=== PATIENT | male | born 1970 | race Caucasian/White ===

== ENCOUNTER 2017-08-12 16:56 | Emergency (ER) | payer BC, SELFPAY ==
[2017-08-12 16:57] VITALS: BP 150/89; PULSE 77; RESP 15; TEMP 36.8; O2SAT 96; BMI 41.3
--- NOTE | 2017-08-12 17:07 | EKG12_ITS ---
Test Reason : SYNCOPE Blood Pressure : / mmHG Vent. Rate : 072 BPM Atrial Rate : 072 BPM P-R Int : 150 ms QRS Dur : 102 ms QT Int : 382 ms P-R-T Axes : 057 037 045 degrees QTc Int : 418 ms Normal sinus rhythm Normal ECG Confirmed by DIANA MARRERO, VANESSA ([id number]), development editor VICENTE CHAMPION ([id number] on 08/14/2017 2:14:06 PM Referred By: SAIRA Confirmed By:VANESSA ORTIZ MD
--- NOTE | 2017-08-12 17:09 | NURSING ---
NO OLD EKGS
[2017-08-12] MEDS: 0.9% Normal Saline 1,000 ML 1000 ML IV (17:16)
[2017-08-12 17:23] LABS: Hematocrit 43.1 % (40-54); Hemoglobin 14.6 g/dl (13.0-16.5); Mean Corp Hgb Conc 33.9 g/gl (32-36); Mean Corpuscular Hgb 29.4 pg (27.0-32.0); Mean Corpuscular Volume 86.9 fL (80-94); Mean Platelet Vol. 9.9 fl (6.2-12.0); Platelet Count 190 K/mm3 (150-450); RBC Distribution Width CV 12.9 % (11.6-14.6); RBC Distribution Width SD 41.2 fl (35.1-43.9); Red Blood Count 4.96 M/mm3 (4.6-6.2)
[2017-08-12 17:25] LABS: Scan Indicated on CBC? Y/N NO
[2017-08-12 17:32] LABS: Anion Gap 8 (5-15); BUN 17 mg/dL (7-18); BUN/Creat Ratio 18.3 RATIO (10-20); Calcium,Total 9.3 mg/dL (8.5-10.1); Chloride 109 mmol/L (98-107); Creatinine, Serum 0.93 mg/dL (0.70-1.30); EST Glomerular Filtration Rate 92 mL/min (>60); Est Glom Filt Rate - Afr Amer 111 mL/min (>60); Estimated Creatinine Clearance 105.46 ml/min; Glucose 97 mg/dL (74-106); Potassium 3.8 mmol/L (3.5-5.1); Sodium Level 143 mmol/L (136-145)
[2017-08-12 17:42] VITALS: BP 132/78; BP 138/98; BP 149/93; PULSE 72; PULSE 74; PULSE 77
[2017-08-12 18:17] VITALS: BP 149/86; PULSE 74; RESP 19; O2SAT 97
[2017-08-12] MEDS: Acetaminophen 500 MG Tablet 1000 MG PO (18:22)
--- NOTE | 2017-08-12 18:57 | ED.VISSUMM ---
- ER Visit Summary Date of Service: 08/12/17 Chief Complaint: [Syncope] History of Present Illness: The patient is a 47 M [presents to the emergency department with syncopal episode while at work today. 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 Patient remembers feeling very hot and lightheaded. Patient then began to vomit and while vomiting had a short syncopal episode. Coworkers did not notice any type of seizure activity. Patient has not had episode like this before. Patient denied any chest pain or palpitations. On arrival he feels much improved but has a mild headache. Symptoms did not begin with the headache. Patient generally just feels somewhat weak right now. Patient denies recent illness.] Physical Examination: [HEENT-PERRLA, EOMI. Cranial nerves II through XII grossly intact. TMs clear. Mucous membranes moist. No adenopathy. Cardiovascular-regular rate and rhythm without murmur or ectopy Lungs-clear to auscultation, chest wall stable without crepitus or subcu emphysema Abdomen-normoactive bowel sounds, soft, nontender, no rebound or rigidity, no peritoneal signs Neuro rucj-[id number]-esnc and heel laird testing within normal limits, negative Romberg, negative for drift, fundi benign. Extremities-intact ?4, normal range of motion, normal pulses, atraumatic] Test Results: [EKG obtained arrival shows sinus rhythm with a ventricular rate of 72 bpm with no acute ST segment changes. CBC with differential was normal. Chemistries were normal. Troponin was less than 0.02. Orthostatic vital signs were negative.] Emergency Department Course and Treatment: [Patient received a liter of normal saline in the emergency department as well as a gram of Tylenol for the headache. On repeat examination his headaches mostly resolved rates it a 3 or 4 out of 10 currently.] Treatment Plan: [Discharged home in stable condition with recommended follow-up with primary care physician within next 3-5 days.] Disposition: [Discharged. Patient advised to return if chest pain, palpitations, persistent syncope, or condition should worsen in any way.] Impression: [Syncope-vasovagal] This note was generated with Tykliation software. It may contain incorrect words, spelling, and punctuation that were not noted in review of the chart prior to signing ED Disposition - Plan for ED Patient: Chief Complaint: Syncope Referrals: [facility] Doctor,Out of [Primary Care Provider] -
--- NOTE | 2017-08-12 19:00 | ED.DCSUM_ITS ---
- ER Visit Summary Date of Service: 08/12/17 Chief Complaint: [Syncope] History of Present Illness: The patient is a 47 M [presents to the emergency department with syncopal episode while at work today. 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 Patient remembers feeling very hot and lightheaded. Patient then began to vomit and while vomiting had a short syncopal episode. Coworkers did not notice any type of seizure activity. Patient has not had episode like this before. Patient denied any chest pain or palpitations. On arrival he feels much improved but has a mild headache. Symptoms did not begin with the headache. Patient generally just feels somewhat weak right now. Patient denies recent illness.] Physical Examination: [HEENT-PERRLA, EOMI. Cranial nerves II through XII grossly intact. TMs clear. Mucous membranes moist. No adenopathy. Cardiovascular-regular rate and rhythm without murmur or ectopy Lungs-clear to auscultation, chest wall stable without crepitus or subcu emphysema Abdomen-normoactive bowel sounds, soft, nontender, no rebound or rigidity, no peritoneal signs Neuro ojkm-nysnfr-sxvr and heel laird testing within normal limits, negative Romberg, negative for drift, fundi benign. Extremities-intact ?4, normal range of motion, normal pulses, atraumatic] Test Results: [EKG obtained arrival shows sinus rhythm with a ventricular rate of 72 bpm with no acute ST segment changes. CBC with differential was normal. Chemistries were normal. Troponin was less than 0.02. Orthostatic vital signs were negative.] Emergency Department Course and Treatment: [Patient received a liter of normal saline in the emergency department as well as a gram of Tylenol for the headache. On repeat examination his headaches mostly resolved rates it a 3 or 4 out of 10 currently.] Treatment Plan: [Discharged home in stable condition with recommended follow-up with primary care physician within next 3-5 days.] Disposition: [Discharged. Patient advised to return if chest pain, palpitations , persistent syncope, or condition should worsen in any way.] Impression: [Syncope-vasovagal] This note was generated with [employer]oTron[employer]ation software. It may contain incorrect words, spelling, and punctuation that were not noted in review of the chart prior to signing ED Disposition - Plan for ED Patient: Chief Complaint: Syncope Referrals: [facility] Doctor,Out of [Primary Care Provider] -
--- NOTE | 2017-08-12 19:00 | ED.DEP ---
ED Disposition - Plan for ED Patient: Chief Complaint: Syncope Instructions: ED Syncope Vasovagal Referrals: [facility],Out of [Primary Care Provider] - 3-5 Days
[2017-08-12 19:13] VITALS: BP 147/89; PULSE 77; RESP 18; RESP 19; O2SAT 97
== END 2017-08-12 19:16 | disposition home or self-care (01) ==
PROVIDERS: Emergency Provider Emergency Medicine
DX: R55 Syncope and collapse (principal); I10 Essential (primary) hypertension; E78.00 Pure hypercholesterolemia, unspecified
CPT/HCPCS: 80048; 84484; 85027; 93005; 99285; J7030; A4216